=== PATIENT | female | born 2000 | race Hispanic/Latino ===

== ENCOUNTER 2025-03-28 21:16 | Emergency (ER) | payer OTHER ==
[~2025-03-28] VITALS: Ht 152.4 cm; Wt 111.4 kg
[~2025-03-28 21:16] MED LIST: FLON1SPR NARES
[2025-03-28 21:19] VITALS: BP 142/74; TEMP 97.4; O2SAT 100
== END 2025-03-28 22:50 | disposition left against medical advice (07) ==
LOC: M ED 21:16
DX: Z53.21 Procedure and treatment not carried out due to patient leaving prior to being seen by health care provider (principal)